=== PATIENT | male | born 1935 | race Two or more races ===

== ENCOUNTER 2018-12-18 14:41 | Inpatient (IN) | payer OTHER ==
[~2018-12-18] VITALS: Ht 165.1 cm; Wt 69.1 kg
[2018-12-18] MEDS ORDERED: TAMS-1 PO (15:03)
[2018-12-18] MEDS ORDERED: FERR134T2 PO (15:03)
[2018-12-18 15:26] LABS: BASOPHILS % (AUTO) 0.7 % (0.0-2.0); EOSINOPHILS % (AUTO) 1.7 % (1.0-6.0); HEMATOCRIT 23.6 % (41-53); HEMOGLOBIN 7.7 g/dL (13.5-17.5); LYMPHOCYTES # (AUTO) 1.2 K/uL (1.0-4.8); LYMPHOCYTES % (AUTO) 17.2 % (22.0-44.0); MEAN CORPUSCULAR HEMOGLOBIN 29.9 pg (26.0-34.0); MEAN CORPUSCULAR HGB CONC 32.7 G/dL (31.0-37.0); MEAN CORPUSCULAR VOLUME 92 fL (80-100); MONOCYTES # (AUTO) 0.6 K/uL (0.1-1.0); MONOCYTES % (AUTO) 8.8 % (2.0-9.0); NEUTROPHILS # (AUTO) 5.1 K/uL (1.8-7.7); NEUTROPHILS % (AUTO) 71.6 % (40.0-70.0); PLATELET COUNT (AUTO) 279 K/uL (150-450); RED BLOOD CELL COUNT(AUTO) 2.58 MIL/uL (4.50-5.90)
[2018-12-18 15:39] LABS: PROTHROMBIN TIME 10.5 SEC (9.4-11.6)
[2018-12-18 15:49] LABS: CALCIUM, TOTAL 8.6 mg/dL (8.8-10.5); CREATININE 5.57 mg/dL (0.60-1.30); POTASSIUM 5.9 mmol/L (3.5-5.1)
[2018-12-18 16:14] LABS: ALBUMIN 3.7 g/dL (3.4-5.0); BILIRUBIN,TOTAL 0.4 mg/dL (0.1-1.0); TOTAL PROTEIN, SERUM 6.5 g/dL (6.4-8.2)
[2018-12-18 16:20] LABS: APPEARANCE,URINE TURBID (CLEAR); BILIRUBIN,URINE NEGATIVE (NEGATIVE); GLUCOSE, URINE (UA) NEGATIVE (NEGATIVE); KETONES,URINE NEGATIVE (NEGATIVE); LEUKOCYTE ESTERASE ,URINE LARGE (NEGATIVE); NITRATE,URINE NEGATIVE (NEGATIVE); OCCULT BLOOD,URINE SMALL (NEGATIVE); PROTEIN,URINE TRACE (NEGATIVE); UROBILINOGEN,URINE 0.2 mg/dL (<=1.0)
[2018-12-18 16:28] LABS: BACTERIA,URINE Moderate /HPF (None Seen); WBC,URINE >100 /HPF (0-5)
[2018-12-18 16:29] LABS: SQUAMOUS EPITHELIAL CELL,UR Few /LPF (None Seen)
[2018-12-18 16:30] LABS: AMORPHOUS SEDIMENT,UR Few /LPF (None Seen)
[2018-12-18] MEDS ORDERED: SODIUM POLYSTYRENE SULFONATE 15 GM/60 ML SUSPENSION BOTTLE PO ONE (16:45)
[2018-12-18] MEDS ORDERED: SODIUM BICARBONATE 50 MEQ in DEXTROSE 5%-WATER 1,000 ML IV ONE (17:00)
[2018-12-18] MEDS ORDERED: CefTRIAXone 1 GM/DEXTROSE 50 ML IV ONE (17:15)
[2018-12-18] MEDS ORDERED: ACETAMINOPHEN 325 MG TABLET PO PRN (18:15)
[2018-12-18] MEDS ORDERED: ONDANSETRON HCL 4 MG/2 ML VIAL IVP PRN ×2 (18:15→21:45)
[2018-12-18] MEDS ORDERED: 0.9% SODIUM CHLORIDE 10 ML SYRINGE IVP PRN ×2 (18:15→21:45)
[2018-12-18 20:50] VITALS: BP 148/74
[2018-12-18] MEDS ORDERED: ZOLPIDEM TARTRATE 5 MG TABLET PO PRN (21:45)
[2018-12-18] MEDS: SODIUM POLYSTYRENE SULFONATE 15 GM/60 ML SUSPENSION BOTTLE PO SCH (21:45)
[2018-12-18 21:51] LABS: CREATININE 5.72 mg/dL (0.60-1.30); POTASSIUM 5.2 mmol/L (3.5-5.1)
[2018-12-18] MEDS: SODIUM BICARBONATE 75 MEQ in SODIUM CHLORIDE 0.45% 1,000 ML IV SCH (23:25)
[2018-12-19 00:12] VITALS: BP 124/58
[2018-12-19] MEDS: SODIUM BICARBONATE 75 MEQ in SODIUM CHLORIDE 0.45% 1,000 ML IV SCH ×2 (03:30→16:38)
[2018-12-19 05:03] VITALS: BP 117/62
[2018-12-19 06:57] LABS: BASOPHILS % (AUTO) 0.6 % (0.0-2.0); EOSINOPHILS % (AUTO) 3.4 % (1.0-6.0); HEMOGLOBIN 7.1 g/dL (13.5-17.5); LYMPHOCYTES # (AUTO) 1.4 K/uL (1.0-4.8); LYMPHOCYTES % (AUTO) 20.8 % (22.0-44.0); MEAN CORPUSCULAR HEMOGLOBIN 30.3 pg (26.0-34.0); MEAN CORPUSCULAR VOLUME 89 fL (80-100); MONOCYTES # (AUTO) 0.7 K/uL (0.1-1.0); MONOCYTES % (AUTO) 9.9 % (2.0-9.0); NEUTROPHILS # (AUTO) 4.5 K/uL (1.8-7.7); NEUTROPHILS % (AUTO) 65.3 % (40.0-70.0); PLATELET COUNT (AUTO) 243 K/uL (150-450); RED BLOOD CELL COUNT(AUTO) 2.32 MIL/uL (4.50-5.90); RED CELL DISTRIBUTION WIDTH 13.8 % (11.5-14.5)
[2018-12-19 07:19] LABS: HEMATOCRIT 20.8 % (41-53)
[2018-12-19 07:31] LABS: ALBUMIN 3.1 g/dL (3.4-5.0); BILIRUBIN,TOTAL 0.3 mg/dL (0.1-1.0); CALCIUM, TOTAL 8.1 mg/dL (8.8-10.5); CREATININE 5.31 mg/dL (0.60-1.30); MAGNESIUM 1.5 mg/dL (1.80-2.40); POTASSIUM 4.6 mmol/L (3.5-5.1); TOTAL PROTEIN, SERUM 5.9 g/dL (6.4-8.2)
[2018-12-19 07:40] LABS: % IRON SATURATION 15.9 % (30-44)
[2018-12-19 07:49] VITALS: BP 116/66
[2018-12-19] MEDS: SODIUM POLYSTYRENE SULFONATE 15 GM/60 ML SUSPENSION BOTTLE PO SCH ×2 (08:07→21:00)
[2018-12-19] MEDS: TAMSULOSIN HCL 0.4 MG CAPSULE PO SCH (08:09)
[2018-12-19] MEDS: PANTOPRAZOLE SODIUM 40 MG DR TABLET PO SCH (08:09)
[2018-12-19] MEDS ORDERED: FERROUS SULFATE 325 MG EC TABLET PO SCH (09:00)
[2018-12-19] MEDS ORDERED: EPOETIN ALFA 10,000 UNITS/ML VIAL SQ ONE (09:15)
[2018-12-19] MEDS: SOD FERRIC GLUC COMPLX/SUCROSE 125 MG in SODIUM CHLORIDE 0.9% 100 ML IV SCH (10:21)
[2018-12-19 11:22] LABS: PROTHROMBIN TIME 10.8 SEC (9.4-11.6)
[2018-12-19 11:23] LABS: MAGNESIUM 1.5 mg/dL (1.80-2.40); PHOSPHORUS 4.1 mg/dL (2.5-4.9)
[2018-12-19 11:31] LABS: CREATININE,URINE RANDOM 40.5 mg/dL (30.0-125.0)
[2018-12-19 11:45] VITALS: BP 128/52
[2018-12-19] MEDS ORDERED: FentaNYL CITRATE-PF 100 MCG/2 ML VIAL ONE (11:57)
[2018-12-19] MEDS ORDERED: MIDAZOLAM HCL 2 MG/2 ML VIAL ONE (11:57)
[2018-12-19] MEDS ORDERED: GELATIN SPONGE,ABSORBABLE 12-7 MM TP ONE (11:58)
[2018-12-19] MEDS ORDERED: SODIUM BICARBONATE 50 MEQ/50 ML VIAL ONE (11:58)
[2018-12-19] MEDS ORDERED: LIDOCAINE/PF 1% 30 ML VIAL ONE (11:58)
[2018-12-19] MEDS: CefTRIAXone 1 GM/DEXTROSE 50 ML IV SCH (18:03)
[2018-12-19 20:30] VITALS: BP 106/57
[2018-12-20 00:14] VITALS: BP 120/62
[2018-12-20] MEDS ORDERED: SODIUM CHLORIDE 0.9% 250 ML IV ONE (00:25)
[2018-12-20 04:13] VITALS: BP 122/58
[2018-12-20] MEDS: SODIUM BICARBONATE 75 MEQ in SODIUM CHLORIDE 0.45% 1,000 ML IV SCH ×2 (04:17→16:03)
[2018-12-20 08:14] VITALS: BP 125/60
[2018-12-20] MEDS: SOD FERRIC GLUC COMPLX/SUCROSE 125 MG in SODIUM CHLORIDE 0.9% 100 ML IV SCH (08:16)
[2018-12-20] MEDS: PANTOPRAZOLE SODIUM 40 MG DR TABLET PO SCH (08:16)
[2018-12-20] MEDS: TAMSULOSIN HCL 0.4 MG CAPSULE PO SCH (08:16)
[2018-12-20 08:17] LABS: BASOPHILS % (AUTO) 0.6 % (0.0-2.0); EOSINOPHILS % (AUTO) 3.2 % (1.0-6.0); HEMATOCRIT 21.7 % (41-53); HEMOGLOBIN 7.5 g/dL (13.5-17.5); LYMPHOCYTES # (AUTO) 1.5 K/uL (1.0-4.8); LYMPHOCYTES % (AUTO) 20.6 % (22.0-44.0); MEAN CORPUSCULAR HEMOGLOBIN 30.8 pg (26.0-34.0); MEAN CORPUSCULAR HGB CONC 34.4 G/dL (31.0-37.0); MEAN CORPUSCULAR VOLUME 90 fL (80-100); MONOCYTES # (AUTO) 0.6 K/uL (0.1-1.0); MONOCYTES % (AUTO) 8.6 % (2.0-9.0); PLATELET COUNT (AUTO) 243 K/uL (150-450); RED BLOOD CELL COUNT(AUTO) 2.43 MIL/uL (4.50-5.90); RED CELL DISTRIBUTION WIDTH 13.8 % (11.5-14.5)
[2018-12-20 08:52] LABS: BILIRUBIN,TOTAL 0.2 mg/dL (0.1-1.0); CALCIUM, TOTAL 8.1 mg/dL (8.8-10.5); CREATININE 5.19 mg/dL (0.60-1.30); TOTAL PROTEIN, SERUM 5.4 g/dL (6.4-8.2)
[2018-12-20 08:58] LABS: PROSTATE SPECIFIC ANTIGEN 15.23 ng/mL (0.00-4.00)
[2018-12-20 11:19] VITALS: BP 112/58
[2018-12-20 15:46] VITALS: BP 116/60
[2018-12-20] MEDS: CefTRIAXone 1 GM/DEXTROSE 50 ML IV SCH (18:39)
[2018-12-20 19:15] LABS: CREATININE,URINE 39.4 mg/dL (30.0-125.0)
[2018-12-20 19:17] LABS: CREATININE,SERUM FOR CRCL 5.19 mg/dL (0.60-1.30)
[2018-12-20 20:44] VITALS: BP 124/62
[2018-12-20] MEDS ORDERED: TAMSULOSIN HCL 0.4 MG CAPSULE PO SCH (21:00)
[2018-12-20] MEDS ORDERED: PNEUMOCOCCAL VACCINE POLYVALENT 0.5 ML VIAL [PPSV23] IM ONE (22:00)
[2018-12-20] MEDS: ACETAMINOPHEN 325 MG TABLET PO PRN (22:12)
[2018-12-21] VITALS (14 sets, daily range): BP systolic 89–136; BP diastolic 53–70
[2018-12-21] MEDS: SODIUM BICARBONATE 75 MEQ in SODIUM CHLORIDE 0.45% 1,000 ML IV SCH ×2 (02:51→15:24)
[2018-12-21 07:46] LABS: BASOPHILS % (AUTO) 0.6 % (0.0-2.0); EOSINOPHILS % (AUTO) 1.9 % (1.0-6.0); HEMOGLOBIN 7.1 g/dL (13.5-17.5); LYMPHOCYTES # (AUTO) 1.7 K/uL (1.0-4.8); LYMPHOCYTES % (AUTO) 16.7 % (22.0-44.0); MEAN CORPUSCULAR HEMOGLOBIN 30.7 pg (26.0-34.0); MEAN CORPUSCULAR HGB CONC 33.9 G/dL (31.0-37.0); MEAN CORPUSCULAR VOLUME 91 fL (80-100); MONOCYTES # (AUTO) 1.1 K/uL (0.1-1.0); MONOCYTES % (AUTO) 10.6 % (2.0-9.0); NEUTROPHILS # (AUTO) 7.1 K/uL (1.8-7.7); NEUTROPHILS % (AUTO) 70.2 % (40.0-70.0); PLATELET COUNT (AUTO) 217 K/uL (150-450); RED BLOOD CELL COUNT(AUTO) 2.31 MIL/uL (4.50-5.90); RED CELL DISTRIBUTION WIDTH 13.6 % (11.5-14.5)
[2018-12-21 08:04] LABS: HEMATOCRIT 20.9 % (41-53)
[2018-12-21 08:20] LABS: CREATININE 5.01 mg/dL (0.60-1.30); MAGNESIUM 1.2 mg/dL (1.80-2.40); PHOSPHORUS 4.1 mg/dL (2.5-4.9); POTASSIUM 3.6 mmol/L (3.5-5.1)
[2018-12-21] MEDS: PANTOPRAZOLE SODIUM 40 MG DR TABLET PO SCH (08:22)
[2018-12-21] MEDS: TAMSULOSIN HCL 0.4 MG CAPSULE PO SCH (08:22)
[2018-12-21] MEDS: SOD FERRIC GLUC COMPLX/SUCROSE 125 MG in SODIUM CHLORIDE 0.9% 100 ML IV SCH (08:23)
[2018-12-21] MEDS ORDERED: MAGNESIUM OXIDE 400 MG TABLET PO ONE (09:00)
[2018-12-21] MEDS ORDERED: MAGNESIUM SULFATE 2 GM in DEXTROSE 5%-WATER 50 ML IV ONE (10:00)
[2018-12-21] MEDS ORDERED: MAGNESIUM SULFATE 1 GM in DEXTROSE 5%-WATER 50 ML IV ONE (10:15)
[2018-12-21] MEDS ORDERED: SODIUM CHLORIDE 0.9% 250 ML IV ONE (10:31)
[2018-12-21] MEDS ORDERED: SODIUM CHLORIDE 0.9% 100 ML ONE (11:17)
[2018-12-21] MEDS: ACETAMINOPHEN 325 MG TABLET PO PRN (11:33)
[2018-12-21] MEDS: CefTRIAXone 1 GM/DEXTROSE 50 ML IV SCH (17:56)
[2018-12-22] MEDS: SODIUM BICARBONATE 75 MEQ in SODIUM CHLORIDE 0.45% 1,000 ML IV SCH (02:06)
[2018-12-22 04:51] VITALS: BP 135/69
[2018-12-22 06:38] LABS: BAND NEUTROPHILS % (MANUAL) 0 % (0-5)
[2018-12-22 06:47] LABS: HEMATOCRIT 23.8 % (41-53); HEMOGLOBIN 8.1 g/dL (13.5-17.5); MEAN CORPUSCULAR HEMOGLOBIN 30.5 pg (26.0-34.0); MEAN CORPUSCULAR HGB CONC 34.2 G/dL (31.0-37.0); MEAN CORPUSCULAR VOLUME 89 fL (80-100); PLATELET COUNT (AUTO) 201 K/uL (150-450); RED BLOOD CELL COUNT(AUTO) 2.67 MIL/uL (4.50-5.90); RED CELL DISTRIBUTION WIDTH 14.1 % (11.5-14.5)
[2018-12-22 07:07] LABS: CALCIUM, TOTAL 8.1 mg/dL (8.8-10.5); CREATININE 5.01 mg/dL (0.60-1.30); MAGNESIUM 1.4 mg/dL (1.80-2.40); PHOSPHORUS 3.6 mg/dL (2.5-4.9); POTASSIUM 3.4 mmol/L (3.5-5.1)
[2018-12-22 07:44] LABS: EOSINOPHILS % (MANUAL) 1 % (1-6); LYMPHOCYTES % (MANUAL) 13 % (22-44); MONOCYTES % (MANUAL) 8 % (2-9); SEGMENTED NEUTROPHILS % 78 % (40-70)
[2018-12-22 08:13] VITALS: BP 128/66
[2018-12-22] MEDS: SOD FERRIC GLUC COMPLX/SUCROSE 125 MG in SODIUM CHLORIDE 0.9% 100 ML IV SCH (09:33)
[2018-12-22 09:38] LABS: IGM (IMMUNOFIXATION) 71 mg/dL (15-143)
[2018-12-22] MEDS ORDERED: POTASSIUM CHLORIDE 20 MEQ ER TABLET PO ONE (11:00)
[2018-12-22] MEDS ORDERED: FentaNYL CITRATE-PF 100 MCG/2 ML VIAL ONE ×2 (11:13→11:15)
[2018-12-22] MEDS ORDERED: GELATIN SPONGE,ABSORBABLE 12-7 MM TP ONE (11:13)
[2018-12-22] MEDS ORDERED: MIDAZOLAM HCL 2 MG/2 ML VIAL ONE (11:14)
[2018-12-22] MEDS ORDERED: SODIUM BICARBONATE 50 MEQ/50 ML VIAL ONE (11:14)
[2018-12-22] MEDS ORDERED: LIDOCAINE/PF 1% 30 ML VIAL ONE (11:14)
[2018-12-22 11:22] VITALS: BP 155/69
[2018-12-22] MEDS: PANTOPRAZOLE SODIUM 40 MG DR TABLET PO SCH (13:56)
[2018-12-22] MEDS: TAMSULOSIN HCL 0.4 MG CAPSULE PO SCH (13:56)
[2018-12-22 14:34] LABS: ALPHA-1 (IFE & PEP) 0.3 g/dL (0.0-0.4); BETA (IFE & ELP) 0.8 g/dL (0.7-1.3); GAMMA GLOBULINS (IFE & ELP) 0.8 g/dL (0.4-1.8); IGM (IMMUNOFIXATION) 68 mg/dL (15-143)
[2018-12-22 16:08] VITALS: BP 130/66
[2018-12-22] MEDS: CefTRIAXone 1 GM/DEXTROSE 50 ML IV SCH (16:44)
[2018-12-22] MEDS: ACETAMINOPHEN 325 MG TABLET PO PRN ×2 (16:46→21:34)
[2018-12-22] MEDS: FINASTERIDE 5 MG TABLET PO SCH (18:50)
[2018-12-22 20:33] VITALS: BP 106/57
[2018-12-22 23:59] VITALS: BP 108/56
[2018-12-23 05:02] VITALS: BP 129/68
[2018-12-23 06:42] LABS: CALCIUM, TOTAL 8.4 mg/dL (8.8-10.5); CREATININE 4.63 mg/dL (0.60-1.30)
[2018-12-23 07:52] VITALS: BP 131/71
[2018-12-23] MEDS: PANTOPRAZOLE SODIUM 40 MG DR TABLET PO SCH (08:18)
[2018-12-23] MEDS: FINASTERIDE 5 MG TABLET PO SCH (08:18)
[2018-12-23] MEDS: TAMSULOSIN HCL 0.4 MG CAPSULE PO SCH (08:18)
[2018-12-23] MEDS: SOD FERRIC GLUC COMPLX/SUCROSE 125 MG in SODIUM CHLORIDE 0.9% 100 ML IV SCH (08:52)
[2018-12-23 11:31] VITALS: BP 123/62
[2018-12-23 15:20] VITALS: BP 136/68
[2018-12-23] MEDS: CefTRIAXone 1 GM/DEXTROSE 50 ML IV SCH (17:59)
[2018-12-23] MEDS: SODIUM CHLORIDE 0.9% 1,000 ML IV SCH (18:17)
[2018-12-23 20:36] VITALS: BP 131/74
[2018-12-24 00:10] VITALS: BP 124/69
[2018-12-24] MEDS: ACETAMINOPHEN 325 MG TABLET PO PRN (03:51)
[2018-12-24 04:30] VITALS: BP 134/76
[2018-12-24 07:14] LABS: BASOPHILS % (AUTO) 0.5 % (0.0-2.0); EOSINOPHILS % (AUTO) 2.1 % (1.0-6.0); HEMATOCRIT 23.5 % (41-53); HEMOGLOBIN 7.9 g/dL (13.5-17.5); LYMPHOCYTES # (AUTO) 1.2 K/uL (1.0-4.8); LYMPHOCYTES % (AUTO) 9.8 % (22.0-44.0); MEAN CORPUSCULAR HEMOGLOBIN 30.5 pg (26.0-34.0); MEAN CORPUSCULAR HGB CONC 33.7 G/dL (31.0-37.0); MEAN CORPUSCULAR VOLUME 91 fL (80-100); MONOCYTES # (AUTO) 1.2 K/uL (0.1-1.0); NEUTROPHILS # (AUTO) 9.4 K/uL (1.8-7.7); NEUTROPHILS % (AUTO) 77.6 % (40.0-70.0); PLATELET COUNT (AUTO) 220 K/uL (150-450); RED CELL DISTRIBUTION WIDTH 13.7 % (11.5-14.5)
[2018-12-24 07:26] VITALS: BP 124/58
[2018-12-24 07:38] LABS: ALBUMIN 2.5 g/dL (3.4-5.0); BILIRUBIN,TOTAL 0.3 mg/dL (0.1-1.0); CALCIUM, TOTAL 8.5 mg/dL (8.8-10.5); CREATININE 4.32 mg/dL (0.60-1.30); POTASSIUM 3.6 mmol/L (3.5-5.1); TOTAL PROTEIN, SERUM 5.8 g/dL (6.4-8.2)
[2018-12-24 08:10] LABS: ALBUMIN URINE (ELP) 21.1 %
[2018-12-24] MEDS: FINASTERIDE 5 MG TABLET PO SCH (10:15)
[2018-12-24] MEDS: TAMSULOSIN HCL 0.4 MG CAPSULE PO SCH (10:15)
[2018-12-24] MEDS: PANTOPRAZOLE SODIUM 40 MG DR TABLET PO SCH (10:15)
[2018-12-24] MEDS: SOD FERRIC GLUC COMPLX/SUCROSE 125 MG in SODIUM CHLORIDE 0.9% 100 ML IV SCH (10:15)
[2018-12-24] MEDS: SODIUM CHLORIDE 0.9% 1,000 ML IV SCH (10:15)
[2018-12-24 11:18] VITALS: BP 138/69
[2018-12-24 12:29] LABS: MAGNESIUM 1.4 mg/dL (1.80-2.40)
[2018-12-24] MEDS ORDERED: MAGNESIUM OXIDE 400 MG TABLET PO ONE (12:45)
[2018-12-24 15:19] VITALS: BP 147/87
[2018-12-24] MEDS ORDERED: FINA5TAB41 PO (15:28)
[2018-12-24] MEDS ORDERED: MAGN200T5 PO (15:29)
[2018-12-26] MEDS ORDERED: EPOETIN ALFA 10,000 UNITS/ML VIAL SQ SCH (09:00)
== END 2018-12-24 17:05 | disposition home or self-care (01) | DRG 469 ==
LOC: EMS 14:42 → 5S 20:18
PROVIDERS: ADMIT Internal Medicine; ATTEND Internal Medicine
PROC: 30233N1 Transfusion of Nonautologous Red Blood Cells into Peripheral Vein, Percutaneous Approach (ICD-10-PCS; 2018-12-21)
PROC: 0TB13ZX Excision of Left Kidney, Percutaneous Approach, Diagnostic (ICD-10-PCS; principal; 2018-12-22)
DX: N17.9 Acute kidney failure, unspecified (principal); E43 Unspecified severe protein-calorie malnutrition; E87.5 Hyperkalemia; I12.0 Hypertensive chronic kidney disease with stage 5 chronic kidney disease or end stage renal disease; D63.1 Anemia in chronic kidney disease; E83.42 Hypomagnesemia; N13.6 Pyonephrosis; N40.1 Benign prostatic hyperplasia with lower urinary tract symptoms; E87.6 Hypokalemia; N18.6 End stage renal disease; K40.90 Unilateral inguinal hernia, without obstruction or gangrene, not specified as recurrent; M19.90 Unspecified osteoarthritis, unspecified site; N11.9 Chronic tubulo-interstitial nephritis, unspecified; R33.8 Other retention of urine; Z87.891 Personal history of nicotine dependence; Z68.25 Body mass index [BMI] 25.0-25.9, adult; Z79.899 Other long term (current) drug therapy; Z90.49 Acquired absence of other specified parts of digestive tract
CPT/HCPCS: 50200; 76770; 81050; 82570; 82575; 82784; 83540; 83550; 83735; 84100; 84153; 84155; 84156; 84165; 84166; 84300; 85007; 86038; 86160; 86162; 86334; 86850; 86900; 86901; 86920; 87086; 90732; 93005; 97162; 97166; 97535; G0378; J0696; J0885; J2250; J2916; J3010; J3475; J3490; J7030; J7050; J7060; P9016

== ENCOUNTER 2019-01-06 14:04 | Emergency (ER) | payer MEDICAID, OTHER ==
[~2019-01-06] VITALS: Ht 170.2 cm; Wt 68.2 kg
[~2019-01-06 14:04] MED LIST: FERR134T2 PO; FINA5TAB41 PO; MAGN200T5 PO; TAMS-1 PO
[2019-01-06 16:04] LABS: BASOPHILS % (AUTO) 0.6 % (0.0-2.0); EOSINOPHILS % (AUTO) 1.5 % (1.0-6.0); HEMOGLOBIN 10.1 g/dL (13.5-17.5); LYMPHOCYTES # (AUTO) 1.8 K/uL (1.0-4.8); LYMPHOCYTES % (AUTO) 16.3 % (22.0-44.0); MEAN CORPUSCULAR HEMOGLOBIN 28.9 pg (26.0-34.0); MEAN CORPUSCULAR HGB CONC 32.5 G/dL (31.0-37.0); MEAN CORPUSCULAR VOLUME 89 fL (80-100); MONOCYTES # (AUTO) 1.3 K/uL (0.1-1.0); MONOCYTES % (AUTO) 11.1 % (2.0-9.0); NEUTROPHILS % (AUTO) 70.5 % (40.0-70.0); PLATELET COUNT (AUTO) 477 K/uL (150-450); RED BLOOD CELL COUNT(AUTO) 3.49 MIL/uL (4.50-5.90); RED CELL DISTRIBUTION WIDTH 14.6 % (11.5-14.5)
[2019-01-06 16:23] LABS: CALCIUM, TOTAL 9.2 mg/dL (8.8-10.5); CREATININE 3.4 mg/dL (0.60-1.30); POTASSIUM 4.5 mmol/L (3.5-5.1)
[2019-01-06 16:28] LABS: ALBUMIN 3.3 g/dL (3.4-5.0); BILIRUBIN,TOTAL 0.3 mg/dL (0.1-1.0); TOTAL PROTEIN, SERUM 7.2 g/dL (6.4-8.2)
[2019-01-06 18:07] LABS: APPEARANCE,URINE CLEAR (CLEAR); BILIRUBIN,URINE NEGATIVE (NEGATIVE); GLUCOSE, URINE (UA) NEGATIVE (NEGATIVE); KETONES,URINE NEGATIVE (NEGATIVE); LEUKOCYTE ESTERASE ,URINE SMALL (NEGATIVE); NITRATE,URINE NEGATIVE (NEGATIVE); OCCULT BLOOD,URINE NEGATIVE (NEGATIVE); PH,URINE 5.5 (5.0-8.0); PROTEIN,URINE POS 1+ (NEGATIVE); UROBILINOGEN,URINE 0.2 mg/dL (<=1.0)
[2019-01-06 18:12] LABS: BACTERIA,URINE Few /HPF (None Seen); RBC,URINE 0-2 /HPF (0-2); SQUAMOUS EPITHELIAL CELL,UR Few /LPF (None Seen)
[2019-01-06 18:53] VITALS: BP 132/74
[2019-01-06] MEDS ORDERED: CEPHALEXIN MONOHYDRATE 500 MG CAPSULE PO ONE (19:15)
== END 2019-01-06 19:44 | disposition home or self-care (01) ==
LOC: EMS 14:05
DX: N39.0 Urinary tract infection, site not specified (principal); N18.9 Chronic kidney disease, unspecified
CPT/HCPCS: 87086

== ENCOUNTER 2019-01-20 13:40 | Emergency (ER) | payer MEDICAID ==
[~2019-01-20] VITALS: Ht 170.2 cm; Wt 63.6 kg
[2019-01-20 15:29] VITALS: BP 119/72
== END 2019-01-20 15:32 | disposition home or self-care (01) ==
LOC: EMS 13:42
DX: N13.9 Obstructive and reflux uropathy, unspecified (principal); R19.7 Diarrhea, unspecified; Z98.890 Other specified postprocedural states; Z79.899 Other long term (current) drug therapy

== ENCOUNTER 2021-07-17 15:50 | Emergency (ER) | payer MEDICAID, OTHER ==
[~2021-07-17] VITALS: Ht 172.7 cm; Wt 63.6 kg
[~2021-07-17 15:50] MED LIST changes: +AMOX1TAB15 PO; +CALC0.2521 PO; +FINA-27 PO; -FINA5TAB41 PO
[2021-07-17 17:39] LABS: BASOPHILS % (AUTO) 0.8 % (0.0-2.0); EOSINOPHILS % (AUTO) 1.5 % (1.0-6.0); HEMATOCRIT 37.1 % (41-53); HEMOGLOBIN 12.7 g/dL (13.5-17.5); LYMPHOCYTES # (AUTO) 1.7 K/uL (1.0-4.8); LYMPHOCYTES % (AUTO) 19.8 % (22.0-44.0); MEAN CORPUSCULAR HEMOGLOBIN 29.5 pg (26.0-34.0); MEAN CORPUSCULAR HGB CONC 34.3 G/dL (31.0-37.0); MEAN CORPUSCULAR VOLUME 86 fL (80-100); MONOCYTES # (AUTO) 0.7 K/uL (0.1-1.0); NEUTROPHILS # (AUTO) 6.1 K/uL (1.8-7.7); NEUTROPHILS % (AUTO) 69.9 % (40.0-70.0); PLATELET COUNT (AUTO) 368 K/uL (150-450); RED BLOOD CELL COUNT(AUTO) 4.32 MIL/uL (4.50-5.90); RED CELL DISTRIBUTION WIDTH 13.8 % (11.5-14.5)
[2021-07-17 17:56] LABS: CALCIUM, TOTAL 9.3 mg/dL (8.8-10.5); CREATININE 2.38 mg/dL (0.60-1.30); POTASSIUM 4.4 mmol/L (3.5-5.1)
[2021-07-17 18:02] LABS: ALBUMIN 3.2 g/dL (3.4-5.0); BILIRUBIN,TOTAL 0.4 mg/dL (0.1-1.0); TOTAL PROTEIN, SERUM 7.7 g/dL (6.4-8.2)
[2021-07-17 19:00] VITALS: BP 124/77
[2021-07-17 19:33] LABS: APPEARANCE,URINE CLEAR (CLEAR); BILIRUBIN,URINE NEGATIVE (NEGATIVE); GLUCOSE, URINE (UA) NEGATIVE (NEGATIVE); KETONES,URINE NEGATIVE (NEGATIVE); LEUKOCYTE ESTERASE ,URINE LARGE (NEGATIVE); NITRATE,URINE NEGATIVE (NEGATIVE); OCCULT BLOOD,URINE TRACE (NEGATIVE); PROTEIN,URINE TRACE mg/dL (NEGATIVE); SPECIFIC GRAVITIY, URINE 1.007 (1.003-1.030); UROBILINOGEN,URINE <=1.0 mg/dL (<=1.0)
[2021-07-17 21:44] LABS: BACTERIA,URINE Few /HPF (None Seen); RBC,URINE 0-2 /HPF (0-2); SQUAMOUS EPITHELIAL CELL,UR Few /LPF (None Seen)
== END 2021-07-17 20:03 | disposition left against medical advice (07) ==
LOC: EMS 15:50
DX: N50.89 Other specified disorders of the male genital organs (principal); K43.9 Ventral hernia without obstruction or gangrene; K40.90 Unilateral inguinal hernia, without obstruction or gangrene, not specified as recurrent
CPT/HCPCS: 80053; 81001; 83690; 84484; 85025; 87086; 93005; 99284